=== PATIENT | male | born 1970 ===

== ENCOUNTER 2018-10-10 18:23 | Emergency (ER) | payer SELFPAY ==
[2018-10-10 18:27] VITALS: BMI 27.6
--- NOTE | 2018-10-10 18:34 | ED PDOC ---
Arrival/HPI - General Historian: Patient - History of Present Illness Narrative History of Present Illness (Text): 10/10/18 18:37 48 y/o male, pmh including gerd for 5 years, nkda, c/o gerd x 1 month. Pt. stated that he has chronic gerd for over 5 years, started again about 1 month ago, no fever or chills, no chest pain or shortness of breath, no numbness or tingling, no palpitation, no other medical or psychological complaints. Past Medical History - Provider Review Nursing Documentation Reviewed: Yes Family/Social History - Physician Review Nursing Documentation Reviewed: Yes Family/Social History: Unknown Family HX Allergies/Home Meds Allergies/Adverse Reactions: Allergies No Known Allergies Allergy (Verified 10/10/18 18:38) Review of Systems - Review of Systems Constitutional: absent: Fatigue, Fevers Eyes: absent: Vision Changes ENT: absent: Hearing Changes Respiratory: absent: SOB, Cough Cardiovascular: absent: Chest Pain Gastrointestinal: Abdominal Pain, Nausea. absent: Vomiting Musculoskeletal: absent: Arthralgias, Back Pain Skin: absent: Rash, Pruritis Neurological: absent: Headache Psychiatric: absent: Anxiety, Depression, Suicidal Ideation Physical Exam Vital Signs Reviewed: Yes Temperature: Afebrile Blood Pressure: Normal Pulse: Regular Respiratory Rate: Normal Appearance: Positive for: Well-Appearing, Non-Toxic, Comfortable Pain Distress: Mild Mental Status: Positive for: Alert and Oriented X 3 - Systems Exam Head: Present: Atraumatic, Normocephalic Pupils: Present: PERRL Extroacular Muscles: Present: EOMI Conjunctiva: Present: Normal Mouth: Present: Moist Mucous Membranes Neck: Present: Normal Range of Motion Respiratory/Chest: Present: Clear to Auscultation, Good Air Exchange. No: Respiratory Distress, Accessory Muscle Use Cardiovascular: Present: Regular Rate and Rhythm, Normal S1, S2. No: Murmurs Abdomen: Present: Normal Bowel Sounds. No: Tenderness, Distention, Peritoneal Signs, Rebound, Guarding, McBurney's Point Tender, Rovsing's Sign Present Back: Present: Normal Inspection Upper Extremity: Present: Normal Inspection. No: Cyanosis, Edema Lower Extremity: Present: Normal Inspection. No: Edema Neurological: Present: GCS=15, CN II-XII Intact, Speech Normal, Motor Func Grossly Intact, Normal Cerebellar Funct, Gait Normal, Memory Normal Skin: Present: Warm, Dry, Normal Color. No: Rashes Psychiatric: Present: Alert, Oriented x 3, Normal Insight, Normal Concentration Medical Decision Making ED Course and Treatment: 10/10/18 18:46 -labs -ekg -chest xray -IVF/pepcid -observe and reassess 10/10/18 21:00 -EKG SB @ 59 BPM, no ST elevation or depression, no T wave inversion. -Gallbladder sonogram Gallbladder wall measures upper limits of normal probable due to incomplete distention. Unremarkable right upper quadrant ultrasound otherwise. -Chest xray ER wet read show no active disease -Labs are non significant -Trop is negative after 24 hours -Lipase is negative -Pt. is asymptomatic, no pain now, labs and radiology results discussed with the steam box operator OUTPATIENT SERVICES DIRECTOR Ignacia Garay as per patient request, advised outpatient GI follow up. -Discharge home with prilosec, stay hydrated, bed rest, follow up with your own pmd and GI within 2 days, return to the ER for any new or worsening signs or symptoms. - RAD Interpretation Radiology Orders: Chest xray: no active pulmonary disease Gallbladder sonogram: EXAM: US Abdomen, Right Upper Quadrant. CLINICAL HISTORY: ABD PAIN/NAUSEA TECHNIQUE: Right upper quadrant sonography performed with image documentation. COMPARISON: None provided. FINDINGS: LIVER: Within normal limits in size and echogenicity. No mass. GALLBLADDER: The gallbladder is not fully distended there are no gallstones. The gallbladder wall measures upper limits of normal 2.9 mm. There is no pericholecystic fluid. COMMON BILE DUCT: Within normal limits in size. 3 mm. PANCREAS: The visualized pancreas appears within normal limits. The distal pancreas is obscured by bowel gas. RIGHT KIDNEY: Unremarkable. Normal renal contours. No renal mass or calculus. No hydronephrosis. IMPRESSION: Gallbladder wall measures upper limits of normal probable due to incomplete distention. Unremarkable right upper quadrant ultrasound otherwise. Electronically signed on October 10, 2018 8:34:36 PM EDT by: Kvng Stallworth M.D., M.B.A., Certified By [employer] Trained MRI and CT Specialist Edge Stripper: Radiologist - EKG Interpretation EKG Interpretation (Text): 10/10/18 20:22 SB @ 59 BPM, no ST elevation or depression, no T wave inversion. Interpreted by ED Physician: Yes Type: 12 lead EKG - PA / [employer] / Resident Statement MD/DO has reviewed & agrees with the documentation as recorded. Disposition/Present on Arrival - Present on Arrival Any Indicators Present on Arrival: No History of DVT/PE: No History of Uncontrolled Diabetes: No Urinary Catheter: No History of Decub. Ulcer: No - Disposition Have Diagnosis and Disposition been Completed?: Yes Diagnosis: GERD (gastroesophageal reflux disease) Disposition: HOME/ ROUTINE Disposition Time: 21:04 Patient Plan: Discharge Condition: IMPROVED Additional Instructions: -Discharge home with prilosec, stay hydrated, bed rest, follow up with your own pmd and GI within 2 days, return to the ER for any new or worsening signs or symptoms. Prescriptions: Omeprazole Magnesium [Prilosec Otc] 20 mg PO DAILY #21 tcp Referrals: Murtaza Rivera MD [Staff Provider] - Follow up with primary [facility] [Outside] - Follow up with primary Forms: WORK NOTE
[2018-10-10] MEDS ORDERED: Sodium Chloride 0.9% 1,000 ML IV STA (18:50)
[2018-10-10 19:00] LABS: BASO # 0.03 K/mm3 (0.0-2.0); BASO % 0.4 % (0.0-3.0); EOS # 0.2 (0.0-0.7); EOS % 2.1 % (1.5-5.0); HEMOGLOBIN 14.1 g/dL (14.0-18.0); LYMPH # 2.4 (1.2-3.4); LYMPH % 33.2 % (22.0-35.0); MEAN CELL VOLUME 87.9 fl (80.0-105.0); MEAN CORPUSCULAR HEMOGLOBIN 30.5 pg (25.0-35.0); MEAN CORPUSCULAR HGB CONC 34.6 g/dl (31.0-37.0); MEAN PLATELET VOLUME 8.7 fl (7.0-11.0); MONO # 0.6 (0.1-0.6); RBC 4.63 10^6/uL (3.5-6.1); RED CELL DISTRIBUTION WIDTH 13.3 % (11.5-14.5); WHITE BLOOD COUNT 7.3 10^3/uL (4.5-11.0)
[2018-10-10 19:23] LABS: ALB/GLOB RATIO 1.5 (1.1-1.8); ALBUMIN 4.4 g/dL (3.0-4.8); BLOOD UREA NITROGEN 14 mg/dL (7-21); CALCIUM 9.4 mg/dL (8.4-10.5); GFR NON-AFRICAN AMERICAN > 60; LIPASE 121 U/L (23-300)
[2018-10-10 19:30] LABS: ALT/SGPT 37 U/L (7-56); AST/SGOT 40 U/L (17-59)
[2018-10-10 19:34] LABS: TROPONIN I < 0.01 ng/mL
[2018-10-10] MEDS ORDERED: Lidocaine 2% Viscous 100 ml PO STA (20:01)
[2018-10-10 20:24] VITALS: BP 144/81; PULSE 58; TEMP 97.7; O2SAT 100
[2018-10-10 21:25] VITALS: RESP 18
--- NOTE | 2018-10-11 07:22 | US ---
Date of service: 10/10/2018 HISTORY: r/o cholecystitis COMPARISON: None. TECHNIQUE: Grayscale imaging was performed. Examination is technically limited due to excessive bowel gas FINDINGS: LIVER: Measures 15.6 cm in length. Normal echogenicity of the liver parenchyma. No mass. No intrahepatic bile duct dilatation. GALLBLADDER: The gallbladder is partially distended. There are no gallstones, wall thickening or pericholecystic fluid. The sonographic Marr's sign is negative. COMMON BILE DUCT: Measures 2.6 mm. No stones. No dilatation. PANCREAS: Obscured by bowel gas. RIGHT KIDNEY: Measures 9.8 cm in length. Normal echogenicity. No calculus, mass, or hydronephrosis. AORTA: No aneurysmal dilatation. IVC: Unremarkable. OTHER FINDINGS: None . IMPRESSION: The gallbladder is partially distended. No cholelithiasis or biliary dilatation. Pancreas is obscured by bowel gas. A preliminary report was provided by [employer].
--- NOTE | 2018-10-11 08:30 | RAD ---
Date of service: 10/10/2018 HISTORY: medical clearance COMPARISON: No prior. FINDINGS: LUNGS: The lungs are well inflated. There is discoid atelectasis/scarring in the right mid lung. No focal consolidation. PLEURA: No pleural effusions or pneumothorax. CARDIOVASCULAR: The heart is normal in size. No aortic atherosclerotic calcifications present. OSSEOUS STRUCTURES: Within normal limits for the patient's age. VISUALIZED UPPER ABDOMEN: Normal. OTHER FINDINGS: None. IMPRESSION: No active pulmonary disease.
--- NOTE | 2018-10-12 07:16 | CARD ---
APPROVED REPORT Date of service: 10/10/2018 EKG Measurement Heart [id number] <Conclusion> Poor data quality, interpretation may be adversely affected Sinus bradycardia with sinus arrhythmia Otherwise normal ECG
== END 2018-10-10 21:10 | disposition home or self-care (01) ==
LOC: ED 18:23
DX: K21.9 Gastro-esophageal reflux disease without esophagitis (principal)
CPT/HCPCS: 71045; 76705; 80053; 83690; 84484; 85025; 93005; 96361; 96374; 96375; 99284; J2405; J7030